=== PATIENT | female | born 1990 | race Caucasian/White ===

== ENCOUNTER 2017-03-27 08:41 | Emergency (ER) | payer SELFPAY ==
[~2017-03-27] VITALS: Ht 154.9 cm; Wt 78.2 kg
[2017-03-27 08:46] VITALS: Ht 154.9 cm; Wt 78.2 kg
== END 2017-03-27 09:59 | disposition left against medical advice (07) ==
LOC: FTE 08:41
DX: Z53.21 Procedure and treatment not carried out due to patient leaving prior to being seen by health care provider (principal)